=== PATIENT | male | born 1980 | race Caucasian/White ===

== ENCOUNTER 2018-04-19 13:14 | Emergency (ER) | payer OTHER ==
[2018-04-19] MEDS ORDERED: Cyclobenzaprine 10 MG TAB ONE (14:05)
== END 2018-04-19 14:19 | disposition home or self-care (01) ==
LOC: ERS 13:14
DX: S16.1XXA Strain of muscle, fascia and tendon at neck level, initial encounter (principal); V69.9XXA Occupant (driver) (passenger) of heavy transport vehicle injured in unspecified traffic accident, initial encounter
CPT/HCPCS: 99283